=== PATIENT | female | born 2000 | race Caucasian/White ===

== ENCOUNTER 2023-07-11 15:42 | Outpatient (OUT) | payer OTHER, SELFPAY ==
--- NOTE | 2023-07-11 | XR_ITS ---
The [address] [address] Patient Name: ANNY CURIEL MRN: [id number] date: 2000 Sex: F Assigned Patient Location: RAD Current Patient Location: [facility] Accession/Order Number: [id number] Exam Date: 07/11/2023 15:50 Report Date: 07/11/2023 16:31 At the request of: JUDY MCDOWELL Procedure: XR foot RT min 3V EXAM: XR foot RT min 3V HISTORY: Puncture wound right foot COMPARISON: None. TECHNIQUE: Three views of the right foot. FINDINGS: No acute fracture or dislocation. No radiopaque foreign body. XR/XR foot RT min 3V IMPRESSION: 1. No acute osseous abnormality. Electronically authenticated by: SEVEN SCHWARTZ Date: 07/11/2023 16:31
== END 2023-07-11 15:43 | disposition home or self-care (01) ==
LOC: RAD 15:46
PROVIDERS: Visit Provider Nurse Practitioner Family
DX: S91.331A Puncture wound without foreign body, right foot, initial encounter (principal)
CPT/HCPCS: 73630